=== PATIENT | male | born 1940 | race Caucasian/White ===

== ENCOUNTER 2016-08-31 10:40 | Outpatient (RCR) | payer OTHER ==
[~2016-08-31 10:40] MED LIST: CALCIUM 500 +1 EAC3 PO; MULTI VITAMIN1 EACH PO; OMEGA-31000 M1 PO; TRIPLE FLEX CA1 EACH PO
== END 2016-09-28 | disposition home or self-care (01) ==
LOC: PTY 10:40
DX: M75.102 Unspecified rotator cuff tear or rupture of left shoulder, not specified as traumatic (principal)

== ENCOUNTER 2016-10-01 10:45 | Outpatient (RCR) | payer OTHER | END 2016-10-26 | disposition home or self-care (01) | LOC: PTY 10:45 | DX: M75.102 Unspecified rotator cuff tear or rupture of left shoulder, not specified as traumatic (principal) ==

== ENCOUNTER 2016-11-09 10:45 | Outpatient (RCR) | payer OTHER | END 2016-11-26 | disposition home or self-care (01) | LOC: PTY 10:45 | DX: M75.102 Unspecified rotator cuff tear or rupture of left shoulder, not specified as traumatic (principal) ==

== ENCOUNTER 2016-11-30 09:00 | Outpatient (RCR) | payer OTHER | END 2016-12-26 | disposition home or self-care (01) | LOC: PTY 09:00 | DX: M75.102 Unspecified rotator cuff tear or rupture of left shoulder, not specified as traumatic (principal); I25.10 Atherosclerotic heart disease of native coronary artery without angina pectoris; M51.36 Other intervertebral disc degeneration, lumbar region; I10 Essential (primary) hypertension; E29.1 Testicular hypofunction; M85.80 Other specified disorders of bone density and structure, unspecified site; I70.0 Atherosclerosis of aorta; H40.033 Anatomical narrow angle, bilateral; M72.2 Plantar fascial fibromatosis; Z85.038 Personal history of other malignant neoplasm of large intestine; Z85.818 Personal history of malignant neoplasm of other sites of lip, oral cavity, and pharynx ==

== ENCOUNTER 2016-12-28 10:25 | Outpatient (RCR) | payer OTHER | END 2017-01-26 | disposition home or self-care (01) | LOC: PTY 10:25 | DX: M75.102 Unspecified rotator cuff tear or rupture of left shoulder, not specified as traumatic (principal) ==

== ENCOUNTER 2017-08-23 11:00 | Outpatient (RCR) | payer OTHER | END 2017-08-28 | disposition home or self-care (01) | LOC: PTY 11:00 | DX: M17.12 Unilateral primary osteoarthritis, left knee (principal); R26.9 Unspecified abnormalities of gait and mobility ==

== ENCOUNTER 2017-09-08 11:00 | Outpatient (RCR) | payer OTHER | END 2017-09-28 | disposition home or self-care (01) | LOC: PTY 11:00 | DX: M17.12 Unilateral primary osteoarthritis, left knee (principal); R26.9 Unspecified abnormalities of gait and mobility ==